=== PATIENT | male | born 1995 | race Caucasian/White ===

== ENCOUNTER 2017-01-18 08:33 | Outpatient (CLI) | payer OTHER ==
[2017-01-18 19:31] LABS: BILIRUBIN,DIRECT < 0.1 mg/dL (0.1-0.5); BILIRUBIN,TOTAL 0.4 mg/dL (0.2-1.0)
== END 2017-01-18 08:34 | disposition home or self-care (01) ==
LOC: LAB.N 08:33
PROVIDERS: ATTEND Physician Assistant
DX: R94.5 Abnormal results of liver function studies (principal)
CPT/HCPCS: 36415; 80076

== ENCOUNTER 2017-05-25 08:00 | Outpatient (CLI) | payer OTHER ==
[2017-05-25 17:14] LABS: THYROID STIMULATING HORMONE < 0.08 uIU/mL (0.34-5.60)
== END 2017-05-25 08:01 | disposition home or self-care (01) ==
LOC: LAB.R 08:00
PROVIDERS: ATTEND Emergency Medicine
DX: E03.9 Hypothyroidism, unspecified (principal)
CPT/HCPCS: 84439; 84443

== ENCOUNTER 2019-07-01 09:56 | Emergency (ER) | payer MEDICAID, OTHER ==
[2019-07-01 10:06] VITALS: BP 147/103
--- NOTE | 2019-07-01 10:11 | ED Physician Documentation ---
PD HPI OPHTHO - Stated complaint Stated Complaint: R EYE PX - Chief complaint Chief Complaint: Heent - History obtained from History obtained from: Patient - History of Present Illness Timing - onset: Yesterday Timing - duration: Days (2) Timing - details: Gradual onset, Still present Location: Right Quality / character: Burning, Aching Associated symptoms: Redness, Swelling, Discharge, Photophobia (mild). No: FB sensation, Decreased vision Contributing factors: No: Exposed to conjunctivitis, Recent URI, FB, Wears contacts Similar symptoms before: Has not had sx before Recently seen: Not recently seen Review of Systems Constitutional: denies: Fever, Chills, Myalgias Ears: denies: Ear pain, Drainage/discharge Nose: reports: Rhinorrhea / runny nose (mild today) Throat: denies: Sore throat Respiratory: denies: Cough PD PAST MEDICAL HISTORY - Past Medical History Cardiovascular: None Respiratory: None Neuro: None Endocrine/Autoimmune: None - Past Surgical History Past Surgical History: No - Present Medications Home Medications: Ambulatory Orders Medication Instructions Recorded Confirmed Levothyroxine [Synthroid] 01/28/14 01/28/14 David/Polymyx B Sulf/Dexameth 3 drops RIGHTEYE Q3H #1 bottle 07/01/19 [Txnifx-Szefp-Aofsediu Eye Drop] - Allergies Allergies/Adverse Reactions: Allergies Allergy/AdvReac Type Severity Reaction Status Date / Time No Known Drug Allergies Allergy Verified 01/28/14 18:04 - Social History Does the pt smoke?: No Smoking Status: Never smoker Does the pt drink ETOH?: No Does the pt have substance abuse?: No - Immunizations Immunizations are current?: No Immunizations: TDAP >10years/unknown PD ED PE NORMAL - Vitals Vital signs reviewed: Yes - General General: Alert and oriented X 3, No acute distress, Well developed/nourished - HEENT HEENT: Ears normal, Pharynx benign - Neck Neck: Supple, no meningeal sign, No adenopathy PD ED PE EXPANDED - Eyes Eyes: EOMI, Right eye, Injected conj/sclera, Exudate, Anterior chambers clear, Normal fundi. No: Eyelid swelling, Eyelid erythema, Conj/sclera FB Results - Vitals Vitals: Vital Signs - 24 hr 07/01/19 10:04 Temperature 36.8 C Heart Rate 99 Respiratory 18 Rate Blood Pressure 147/103 H O2 Saturation 100 Oxygen O2 Source Room air PD MEDICAL DECISION MAKING - ED course Complexity details: considered differential (With such symptoms to the right eye no real URI symptoms per se, it sounds more bacterial conjunctivitis.), d/w patient Departure - Departure Disposition: 01 Home, Self Care Clinical Impression: Conjunctivitis, acute Qualifiers: Acute conjunctivitis type: bacterial Laterality: right Qualified Code(s): H10.31 - Unspecified acute conjunctivitis, right eye Condition: Stable Record reviewed to determine appropriate education?: Yes Instructions: ED Conjunctivitis Bacterial Prescriptions: David/Polymyx B Sulf/Dexameth [Ltizxp-Otzcy-Sobqrhbx Eye Drop] 3 drops RIGHTEYE Q3H #1 bottle Comments: You can use lubricating eyedrops such as artificial tears which are available [id number]. This will help soothe the irritation on the eye. Use the antibiotic eyedrops every 2-3 hours while awake for the next few days. It has an anti-inflammatory in it as well. Tylenol or ibuprofen if needed for pains as well. Rest your eye today off work. Return return tomorrow if you are feeling better. I would anticipate improvement over the next 1 to 2 days. Use and antibiotic eyedrops for about 4-5 days to ensure its fully cleared Forms: Activity restrictions Discharge Date/Time: 07/01/19 10:49
[2019-07-01] MEDS ORDERED: PROPARACAINE 0.5% OPHTH DROPS 15 ML EACHEYE STA (10:32)
== END 2019-07-01 10:49 | disposition home or self-care (01) ==
LOC: ED 09:56
DX: H10.31 Unspecified acute conjunctivitis, right eye (principal)
CPT/HCPCS: 99282; 99283; J3490

== ENCOUNTER 2019-11-25 09:01 | Emergency (ER) | payer MEDICAID ==
[2019-11-25 09:09] VITALS: BP 135/90
--- NOTE | 2019-11-25 09:16 | ED Physician Documentation ---
PD HPI SKIN - Stated complaint Stated Complaint: SORES ON ARMS - Chief complaint Chief Complaint: Wound - History obtained from History obtained from: Patient - History of Present Illness Timing - onset: How many days ago (7-10) Timing - duration: Days (7-10) Timing - details: Gradual onset, Still present Location: RUE, LUE Quality / character: Painful, Discolored, Crusted, Swelling Associated symptoms: Joint pain. 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 He did not think this was impetigo because the crusting was not as prevalent as what he remembers. Review of Systems Constitutional: denies: Fever, Chills Eyes: denies: Decreased vision Ears: denies: Ear pain Throat: denies: Sore throat Cardiac: denies: Chest pain / pressure Respiratory: denies: Cough GI: denies: Abdominal Pain, Nausea, Vomiting : denies: Dysuria, Frequency Skin: reports: Rash, Lesions Musculoskeletal: denies: Neck pain, Back pain, Extremity pain PD PAST MEDICAL HISTORY - Past Medical History Cardiovascular: None Respiratory: None Neuro: None Endocrine/Autoimmune: None - Past Surgical History Past Surgical History: No - Present Medications Home Medications: Ambulatory Orders Medication Instructions Recorded Confirmed Levothyroxine [Synthroid] 01/28/14 01/28/14 Azithromycin [Zithromax] 250 mg PO DAILY #6 tablet 11/25/19 Mupirocin 1 gm TP BID #22 gm 11/25/19 - Allergies Allergies/Adverse Reactions: Allergies Allergy/AdvReac Type Severity Reaction Status Date / Time No Known Drug Allergies Allergy Verified 11/25/19 09:04 - Social History Does the pt smoke?: No Smoking Status: Never smoker Does the pt drink ETOH?: No Does the pt have substance abuse?: No - Immunizations Immunizations are current?: No Immunizations: TDAP >10years/unknown PD ED PE NORMAL - Vitals Vital signs reviewed: Yes (tachy and hypertensive ) - General General: Alert and oriented X 3, No acute distress, Well developed/nourished - HEENT HEENT: Atraumatic, PERRL, EOMI - Respiratory Respiratory: No respiratory distress - Derm Derm: Normal color, Warm and dry - Extremities Extremities: No deformity, No edema, Other (There are multiple subcentimeter plaque-like eruptions erythematous with minimal crusting. The largest is 1/2 cm x 0.5 cm over the dorsum of the left hand. There is no lymphangitic streaking no significant swelling to any of the areas most consistent with impetigo.) Results - Vitals Vitals: Vital Signs - 24 hr 11/25/19 09:04 Temperature 37 C Heart Rate 103 H Respiratory 16 Rate Blood Pressure 135/90 H O2 Saturation 97 Oxygen O2 Source Room air PD MEDICAL DECISION MAKING - ED course Complexity details: considered differential, d/w patient ED course: 24-year-old male with what appears to be impetigo to both forearms.He does not have much crusting. There is no evidence of cellulitis. This does not appear to be consistent with scabies infestation or with chemical sensitivity. Departure - Departure Disposition: 01 Home, Self Care Clinical Impression: Impetigo Condition: Stable Instructions: Impetigo Follow-Up: [facility] [Provider Group] Prescriptions: Azithromycin [Zithromax] 250 mg PO DAILY #6 tablet Mupirocin 1 gm TP BID #22 gm
== END 2019-11-25 09:46 | disposition home or self-care (01) ==
LOC: ED 09:01
DX: L01.00 Impetigo, unspecified (principal)
CPT/HCPCS: 99282; 99284

== ENCOUNTER 2020-04-01 10:11 | Emergency (ER) | payer MEDICAID ==
[2020-04-01 10:51] VITALS: BP 127/70
--- NOTE | 2020-04-01 11:07 | ED Physician Documentation ---
PD HPI SKIN - Stated complaint Stated Complaint: BILAT HAND PX/SWELLING - Chief complaint Chief Complaint: Wound - History obtained from History obtained from: Patient - History of Present Illness Timing - onset: How many weeks ago (2) Timing - duration: Weeks (2) Timing - details: Gradual onset, Still present Location: RUE, LUE, LLE Quality / character: Painful, Burning, Crusted, Swelling Contributing factors: Unknown Similar symptoms before: Diagnosis (impetigo) Recently seen: Not recently seen - Additional information Additional information: Previously well 24-year-old male has developed some sores on his hands on the dorsum bilaterally and he has been using some Neosporin on them he also has a spot on his left thigh of similar redness with some drainage and crusting. He feels there is infection under the skin. He has not had fever and is not otherwise been ill. Review of Systems Constitutional: denies: Fever Ears: denies: Ear pain Nose: denies: Congestion Throat: denies: Sore throat Cardiac: denies: Chest pain / pressure Respiratory: reports: Cough (Smoker's cough has been regular). denies: Dyspnea GI: denies: Nausea, Vomiting Skin: reports: Lesions PD PAST MEDICAL HISTORY - Past Medical History Cardiovascular: None Respiratory: None Neuro: None Endocrine/Autoimmune: HyPERthyroidism GI: None : None HEENT: None Psych: None Musculoskeletal: None Derm: None - Past Surgical History Past Surgical History: No - Present Medications Home Medications: Ambulatory Orders Medication Instructions Recorded Confirmed Azithromycin [Zithromax] 250 mg PO DAILY #6 tablet 04/01/20 Mupirocin 1 gm TP BID #22 gm 04/01/20 - Allergies Allergies/Adverse Reactions: Allergies Allergy/AdvReac Type Severity Reaction Status Date / Time No Known Drug Allergies Allergy Verified 04/01/20 10:22 - Social History Does the pt smoke?: Yes Smoking Status: Current every day smoker Does the pt drink ETOH?: Yes Does the pt have substance abuse?: No - Immunizations Immunizations are current?: No Immunizations: TDAP >10years/unknown PD ED PE NORMAL - Vitals Vital signs reviewed: Yes (Hypertensive) - General General: Alert and oriented X 3, No acute distress, Well developed/nourished - HEENT HEENT: Atraumatic, PERRL, EOMI - Respiratory Respiratory: No respiratory distress - Derm Derm: Normal color, Warm and dry, Other (There are round erythematous macules with a central area of clearing and crusting with surrounding erythema about 1 cm in size to the dorsum of both hands and to the left anterior thigh. 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 His record indicates he has had this same type of picture in November of this year and the patient recalls that he did get better he still has some scars from the prior event. Departure - Departure Disposition: 01 Home, Self Care Clinical Impression: Impetigo Instructions: ED Impetigo Ch Follow-Up: [facility] [Provider Group] Prescriptions: Mupirocin 1 gm TP BID #22 gm Azithromycin [Zithromax] 250 mg PO DAILY #6 tablet
== END 2020-04-01 11:22 | disposition home or self-care (01) ==
LOC: ED 10:11
DX: L01.00 Impetigo, unspecified (principal); F17.200 Nicotine dependence, unspecified, uncomplicated
CPT/HCPCS: 99282; 99284

== ENCOUNTER 2020-04-07 11:19 | Emergency (ER) | payer MEDICAID ==
[2020-04-07 11:29] VITALS: BP 147/80
--- NOTE | 2020-04-07 12:28 | ED Physician Documentation ---
History of Present Illness - Stated complaint Stated Complaint: HAND SWELLING, FEVER, NAUSEA - Chief complaint Chief Complaint: General - Additonal information Additional information: 24-year-old male presents to the emergency department for reevaluation of his skin/hand sores and lesions. Seen just over a week ago for similar. He was diagnosed with impetigo. He was given a 6-day course of azithromycin as well as mupirocin ointment. Patient reports that some of the sores have healed but others have not and they continue to spread on his arms and legs. He reports that yesterday when he was working in the hot sun he felt feverish a nd chilled. He reports that he is typically able to work outside in the sun without getting hot. He denies that he has had chest pain, dyspnea, nausea vomiting or diarrhea. Review of Systems Constitutional: reports: Fever (subjective only), Chills Nose: denies: Rhinorrhea / runny nose, Congestion Throat: denies: Oral lesions / sores, Sore throat Cardiac: denies: Chest pain / pressure, Palpitations, Pedal edema, Calf pain Respiratory: denies: Dyspnea, Cough, Hemoptysis, Wheezing GI: denies: Abdominal Pain, Nausea, Vomiting, Constipation, Diarrhea : denies: Dysuria, Frequency, Hesitancy Skin: reports: Lesions PD PAST MEDICAL HISTORY - Past Medical History Past Medical History: Yes Cardiovascular: None Respiratory: None Neuro: None Endocrine/Autoimmune: HyPERthyroidism GI: None : None HEENT: None Psych: None Musculoskeletal: None Derm: None - Past Surgical History Past Surgical History: No - Present Medications Home Medications: Ambulatory Orders Medication Instructions Recorded Confirmed Mupirocin [Centany] 30 gm TP TID #1 oint...g. 04/07/20 Sulfamethox/Trimeth 800/160 1 each PO BID #14 tablet 04/07/20 [Bactrim Ds 800/160] - Allergies Allergies/Adverse Reactions: Allergies Allergy/AdvReac Type Severity Reaction Status Date / Time No Known Drug Allergies Allergy Verified 04/07/20 11:29 - Social History Does the pt smoke?: Yes Smoking Status: Current every day smoker Does the pt drink ETOH?: Yes Does the pt have substance abuse?: No - Immunizations Immunizations are current?: No Immunizations: TDAP >10years/unknown - POLST Patient has POLST: No PD ED PE NORMAL - General General: Alert and oriented X 3, No acute distress, Well developed/nourished - HEENT HEENT: PERRL, EOMI, Ears normal - Neck Neck: No bony TTP, No adenopathy - Cardiac Cardiac: RRR, No murmur - Respiratory Respiratory: No respiratory distress - Abdomen Abdomen: Normal bowel sounds, Soft, Non tender - Back Back: No CVA TTP, No spinal TTP - Derm Derm: Normal color, Warm and dry, No rash, Other (Multiple shallow crusting lesions on left hand forehead and right arm. Various stages of healing. 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 He has had this similarly in the past. Seen recently and prescribed azithromycin and mupirocin ointment. Some of the lesions have started to heal however there is some continuation of the spread to the right arm and forehead today. He does not have any signs of systemic infection. He has no fever here. No tachycardia. Unremarkable cardiopulmonary auscultation. I reassured him that the heat and chills he felt in the hot sun was likely simply exposure to the sun while working. I will recommend that this gentleman complete a course of Bactrim as he does report some purulent drainage from the lesion on his left hand. We will also recommend mupirocin ointment 2-3 times a day. I also recommend Betadine body wash every other day for 2 showers. I have advised that he should shower and wash with a fresh towel and washcloth each time. Advise close follow-up with primary care doctor Departure - Departure Disposition: 01 Home, Self Care Clinical Impression: Impetigo Condition: Stable Record reviewed to determine appropriate education?: Yes Instructions: ED Impetigo Ch Prescriptions: Sulfamethox/Trimeth 800/160 [Bactrim Ds 800/160] 1 each PO BID #14 tablet Mupirocin [Centany] 30 gm TP TID #1 oint...g. Comments: Matthew let us start you on a different course of antibiotics. Please fill the prescription for the Bactrim and begin taking twice a day as directed. I have also refilled the mupirocin ointment. I would like you to buy some Betadine at the pharmacy. I would like you to take a shower every other day for 2 showers using the Betadine as a body wash. Once you apply it to your body. Turn off the water and insecticide supervisor the shower for 2 to 3 minutes. Please use a new washcloth and towel each time you shower. With these interventions I would expect the sores and lesions to stop appearing and slowly heal. I would like you to schedule follow-up with your primary care doctor if these lesions are not healing you may need referral to a steam shovel engineer and the referral process to specialist Dr. barroso that can take many months.
== END 2020-04-07 13:01 | disposition home or self-care (01) ==
LOC: ED 11:19
DX: L01.00 Impetigo, unspecified (principal); F17.200 Nicotine dependence, unspecified, uncomplicated
CPT/HCPCS: 99282; 99284

== ENCOUNTER 2021-06-23 10:19 | Outpatient (CLI) | payer MEDICAID ==
[2021-06-23 10:30] LABS: BASOPHILS % (AUTO) 0.6 %; EOSINOPHILS # (AUTO) 0.3 10^3/uL (0.0-0.7); EOSINOPHILS % (AUTO) 3.9 %; HCT - HEMATOCRIT 41.9 % (42.0-52.0); HGB - HEMOGLOBIN 13.9 g/dL (14.0-18.0); LYMPHOCYTES # (AUTO) 2.7 10^3/uL (1.5-3.5); LYMPHOCYTES % (AUTO) 38.5 %; MEAN CORPUSCULAR HEMOGLOBIN 29.6 pg (27.0-31.0); MEAN CORPUSCULAR HGB CONC 33.2 g/dL (32.0-36.0); MEAN CORPUSCULAR VOLUME 89.1 fL (80.0-94.0); MEAN PLATELET VOLUME 10.3 fL (7.4-11.4); MONOCYTES # (AUTO) 0.5 10^3/uL (0.0-1.0); MONOCYTES % (AUTO) 7.5 %; NEUTROPHILS # (AUTO) 3.4 10^3/uL (1.5-6.6); NEUTROPHILS % (AUTO) 49.2 %; PLT - PLATELET COUNT 227 10^3/uL (130-450); RED CELL DISTRIBUTION WIDTH 13.2 % (12.0-15.0); WHITE BLOOD COUNT 6.9 x10^3/uL (4.8-10.8)
[2021-06-23 11:01] LABS: ALBUMIN 4.7 g/dL (3.2-5.5); ALBUMIN/GLOBULIN RATIO 1.5 (1.0-2.2); BILIRUBIN,TOTAL 0.5 mg/dL (0.2-1.0); CALCIUM 9.5 mg/dL (8.5-10.3); CREATININE 0.7 mg/dL (0.6-1.2); POTASSIUM 3.9 mmol/L (3.5-5.0); TOTAL PROTEIN 7.8 g/dL (6.7-8.2)
== END 2021-06-23 10:20 | disposition home or self-care (01) ==
LOC: LAB.R 10:19
PROVIDERS: ATTEND Registered Nurse
DX: R68.89 Other general symptoms and signs (principal); R94.6 Abnormal results of thyroid function studies
CPT/HCPCS: 80053; 84443; 85025